=== PATIENT | male | born 1995 | race Caucasian/White ===

== ENCOUNTER 2017-10-24 13:48 | Emergency (ER) | payer OTHER ==
[~2017-10-24] VITALS: Ht 177.8 cm; Wt 77.1 kg
[~2017-10-24 13:48] MED LIST: ACETAMINOPHEN-1 EAC1 PO; BACTROBAN CREAM30 G1 TOP; IBUPROFEN 800800 M1 PO
[2017-10-24] MEDS ORDERED: SERTRALINE HCL50 MG PO (14:02)
[2017-10-24] MEDS ORDERED: ATIVAN0.5 MG PO (14:02)
[2017-10-24] MEDS ORDERED: TRAZODONE HCL50 MG PO (14:02)
[2017-10-24] MEDS ORDERED: ZANAFLEX2 MG PO (14:49)
[2017-10-24 15:41] VITALS: BP 124/74
== END 2017-10-24 15:42 | disposition home or self-care (01) ==
LOC: M.ERS 13:48
DX: S16.1XXA Strain of muscle, fascia and tendon at neck level, initial encounter (principal); V89.2XXA Person injured in unspecified motor-vehicle accident, traffic, initial encounter; Y93.89 Activity, other specified; Y92.89 Other specified places as the place of occurrence of the external cause; Y99.8 Other external cause status

== ENCOUNTER 2019-03-20 22:41 | Emergency (ER) | payer OTHER ==
[~2019-03-20] VITALS: Ht 177.8 cm; Wt 77.1 kg
[~2019-03-20 22:41] MED LIST changes: +ATIVAN0.5 MG PO; +SERTRALINE HCL50 MG PO; +TRAZODONE HCL50 MG PO; +ZANAFLEX2 MG PO
[2019-03-20] MEDS ORDERED: LATUDA20 MG PO (22:57)
[2019-03-20 23:05] LABS: URINE BILIRUBIN NEGATIVE (Negative); URINE BLOOD NEGATIVE (Negative); URINE CLARITY CLEAR; URINE COLOR YELLOW; URINE GLUCOSE-RANDOM NEGATIVE (Negative); URINE KETONES NEGATIVE (Negative); URINE LEUKOCYTES NEGATIVE (Negative); URINE NITRITE NEGATIVE (Negative); URINE PROTEIN TRACE (Negative); URINE SPECIFIC GRAVITY 1.025 (1.005-1.030); URINE UROBILINOGEN 0.2 E.U./dl (0.2-1.0)
[2019-03-20 23:26] LABS: ABSOLUTE LYMPHOCYTES 3.1 thou/uL (0.8-5.3); ABSOLUTE NEUTROPHILS 6.6 thou/uL (1.6-8.1); BASOPHILS 0.4 %; EOSINOPHILS 0.3 %; HEMOGLOBIN 15.8 gm/dL (14.0-18.0); LYMPHOCYTES 28.9 %; MCH 28.3 pg (26.0-34.0); MCHC 35.1 g/dL (28.0-37.0); MCV 80.7 fL (80.0-100.0); MONOCYTES 8.9 %; MPV 6.6 fl. (7.2-11.1); NUCLEATED RBCS 0 /100WBC; PLATELET COUNT* 347 thou/uL (150-400); POLYS 61.5 %; RBC 5.57 mil/uL (4.50-6.00); RDW-CV 13.7 % (10.5-14.5); WBC 10.8 thou/uL (4.0-11.0)
[2019-03-20 23:31] LABS: CALCIUM 9.7 mg/dL (8.5-10.1); CREATININE 1.6 mg/dL (0.6-1.3); POTASSIUM 3.3 mmol/L (3.5-5.1)
[2019-03-20 23:36] LABS: ALBUMIN 4.6 g/dL (3.4-5.0); TOTAL BILIRUBIN 0.5 mg/dL (<0.1-1.0); TOTAL PROTEIN 8.5 g/dL (6.4-8.2)
[2019-03-21 00:55] VITALS: BP 133/84
== END 2019-03-21 00:58 | disposition home or self-care (01) ==
LOC: M.ERS 22:41
PROVIDERS: Nurse Practitioner Family
DX: E87.6 Hypokalemia (principal); F41.9 Anxiety disorder, unspecified; F31.9 Bipolar disorder, unspecified; M54.5 Low back pain